=== PATIENT | female | born 1960 | race Caucasian/White ===

== ENCOUNTER 2023-10-25 17:48 | Emergency (ER) | payer OTHER ==
[2023-10-25] MEDS ORDERED: Dexamethasone 10 MG/ML VIAL ONE (18:19)
[2023-10-25] MEDS ORDERED: Ketorolac Tromethamine 30 MG (1 mL) VIAL ONE (18:20)
== END 2023-10-25 18:45 | disposition home or self-care (01) ==
LOC: CSHERS 17:48
DX: M06.9 Rheumatoid arthritis, unspecified (principal); E11.9 Type 2 diabetes mellitus without complications; E03.9 Hypothyroidism, unspecified; K21.9 Gastro-esophageal reflux disease without esophagitis; E78.00 Pure hypercholesterolemia, unspecified; Z79.899 Other long term (current) drug therapy; Z75.3 Unavailability and inaccessibility of health-care facilities
CPT/HCPCS: 99283; J1100; J1885

== ENCOUNTER 2024-05-19 13:01 | Inpatient (IN) | payer MEDICARE, OTHER ==
[2024-05-19] MEDS ORDERED: Ipratropium/Albuterol 3 ML NEB ONE (13:25)
[2024-05-19] MEDS ORDERED: cefTRIAXone (ROCEPHIN) 2 GM VIAL ONE (13:56)
[2024-05-19] MEDS ORDERED: Azithromycin 500 MG VIAL ONE (13:56)
[2024-05-19 13:57] LABS: #Eosinophils 0.08 10x3/uL (0.0-0.5); #Monocytes 0.95 10x3/uL (0.0-1.1); %Basophils 0.6 % (0.0-2.0); %Eosinophils 0.5 % (0.0-6.0); %Lymphocytes 12.9 % (18.0-47.0); %Monocytes 5.8 % (0.0-10.0); %Neutrophils 75.9 % (40.0-75.0); Hemoglobin 14.8 g/dL (12.0-15.5); Mean Corpuscular HGB CONC 32.9 g/dL (32.0-36.0); Mean Corpuscular Hemoglobin 26.1 pg (27.0-33.0); Mean Corpuscular Volume 79.5 fL (81.6-98.3); Mean Platelet Volume 10.2 fL (7.4-10.4); Platelet Count 480 10x3/uL (150-450); Red Blood Cell (RBC) Count 5.66 10x6/uL (3.90-5.03); White Blood Cell (WBC) Count 16.3 10x3/uL (3.5-10.5)
[2024-05-19 14:10] LABS: ALT (SGPT) 16 U/L (8-55); Alkaline Phosphatase 153 U/L (40-110); Anion Gap 17 mmol/L (10-20); BUN (Urea Nitrogen) 15 mg/dL (9.8-20.1); Bilirubin, Total Less than 0.2 mg/dL (0.2-1.2); Calc. Creatinine Clearance 0 mL/min (70-130); Calcium 8.5 mg/dL (7.8-10.44); Carbon Dioxide 19 mmol/L (23-31); Chloride 108 mmol/L (98-107); Estimated GFR 86; Globulin 4.7 g/dL (2.4-3.5); Glucose 153 mg/dL (80-115); Potassium 3.9 mmol/L (3.5-5.1); Protein, Total 6.7 g/dL (5.8-8.1); Sodium 140 mmol/L (136-145)
[2024-05-19 14:15] LABS: AST (SGOT) 19 U/L (5-34)
[2024-05-19] MEDS ORDERED: Acetaminophen 500 MG TAB ONE (14:16)
[2024-05-19] MEDS ORDERED: Ondansetron PF 4 MG/2 ML Vial IVP PRN (19:24)
[2024-05-19] MEDS ORDERED: Glucagon 1 MG/ML KIT IM PRN (19:24)
[2024-05-19] MEDS ORDERED: Dextrose 50% Abboject 50 ML SYRINGE SLOW IVP PRN (19:24)
[2024-05-19] MEDS ORDERED: Insulin Lispro 100 UNIT/ML 10 ML VIAL SC PRN (19:24)
[2024-05-19] MEDS ORDERED: Acetaminophen 650 MG Suppository PR PRN (19:24)
[2024-05-19] MEDS ORDERED: Dextrose 5% in Water 1,000 ML IV PRN (19:24)
[2024-05-19] MEDS ORDERED: Ondansetron ODT 4 MG TAB PO PRN (19:24)
[2024-05-19] MEDS ORDERED: Acetaminophen 325 MG TAB ONE (19:55)
[2024-05-19] MEDS ORDERED: Atorvastatin Calcium 40 MG TAB ONE (20:42)
[2024-05-19] MEDS: Atorvastatin Calcium 40 MG TAB PO SCH (20:55)
[2024-05-19] MEDS: Oseltamivir 75 MG CAP PO SCH (20:55)
[2024-05-19] MEDS: DULoxetine 30 MG CAP PO SCH (20:55)
[2024-05-19] MEDS: Ipratropium/Albuterol 3 ML NEB NEB PRN (23:48)
[2024-05-20 03:25] LABS: #Basophils 0.08 10x3/uL (0.0-0.2); #Monocytes 1.04 10x3/uL (0.0-1.1); #Neutrophils 10.61 10x3/uL (1.5-8.4); %Basophils 0.5 % (0.0-2.0); %Eosinophils 0.7 % (0.0-6.0); %Lymphocytes 15.7 % (18.0-47.0); %Monocytes 7.1 % (0.0-10.0); %Neutrophils 72.1 % (40.0-75.0); Hematocrit 36.9 % (34.9-44.5); Hemoglobin 12.1 g/dL (12.0-15.5); Mean Corpuscular HGB CONC 32.8 g/dL (32.0-36.0); Mean Corpuscular Hemoglobin 26.5 pg (27.0-33.0); Mean Corpuscular Volume 80.9 fL (81.6-98.3); Platelet Count 390 10x3/uL (150-450); RBC Distribution Width 19.9 % (11.5-14.5); Red Blood Cell (RBC) Count 4.56 10x6/uL (3.90-5.03); White Blood Cell (WBC) Count 14.7 10x3/uL (3.5-10.5)
[2024-05-20 04:36] LABS: Anion Gap 14 mmol/L (10-20); BUN (Urea Nitrogen) 21 mg/dL (9.8-20.1); Calc. Creatinine Clearance 75 mL/min (70-130); Carbon Dioxide 19 mmol/L (23-31); Chloride 108 mmol/L (98-107); Estimated GFR 97; Glucose 162 mg/dL (80-115); Potassium 2.8 mmol/L (3.5-5.1); Sodium 138 mmol/L (136-145)
[2024-05-20] MEDS: Levothyroxine Sodium 50 MCG TAB PO SCH (06:10)
[2024-05-20] MEDS ORDERED: Acetaminophen 325 MG TAB ONE ×2 (06:24→11:42)
[2024-05-20] MEDS: Acetaminophen 325 MG TAB PO PRN (06:32)
[2024-05-20] MEDS ORDERED: Potassium Chloride 20 MEQ TAB ONE (09:08)
[2024-05-20] MEDS ORDERED: Enoxaparin 40 MG (0.4 mL) SYRINGE ONE (09:08)
[2024-05-20] MEDS ORDERED: Pantoprazole 40 MG DR.TAB ONE (09:09)
[2024-05-20] MEDS ORDERED: Folic Acid 1 MG TAB ONE (09:09)
[2024-05-20 09:36] VITALS: BMI 27.4
[2024-05-20] MEDS: Potassium Chloride 20 MEQ TAB PO SCH (10:16)
[2024-05-20] MEDS: Folic Acid 1 MG TAB PO SCH (10:16)
[2024-05-20] MEDS: Enoxaparin 40 MG (0.4 mL) SYRINGE SC SCH (10:16)
[2024-05-20] MEDS: DULoxetine 30 MG CAP PO SCH (10:16)
[2024-05-20] MEDS: Pantoprazole 40 MG DR.TAB PO SCH (10:16)
[2024-05-20] MEDS: busPIRone HCl 5 MG TAB PO SCH (10:16)
[2024-05-20] MEDS: Oxybutynin ER 5 MG TAB PO SCH (10:16)
[2024-05-20] MEDS: Topiramate 100 MG TAB PO SCH (10:17)
[2024-05-20] MEDS ORDERED: tiZANidine HCl 4 MG TAB PO PRN (14:10)
[2024-05-20] MEDS ORDERED: Ondansetron ODT 4 MG TAB PO PRN (14:33)
[2024-05-20] MEDS ORDERED: cefTRIAXone (ROCEPHIN) 2 GM VIAL ONE (16:31)
[2024-05-20] MEDS: cefTRIAXone\\ROCEPHIN 2 GM in Sodium Chloride 0.9% 100 ML IVPB SCH (16:47)
[2024-05-20] MEDS: SUMAtriptan Succinate 50 MG TAB PO PRN (16:48)
[2024-05-20] MEDS: FLU (Fluarix Triv) TS24-25(6MOS UP)/PF 45 MCG/0.5 ML Syringe IM ONE (17:36)
[2024-05-20] MEDS ORDERED: Azithromycin 500 MG VIAL ONE (17:38)
[2024-05-20] MEDS: Azithromycin 500 MG in Sodium Chloride 0.9% 250 ML 250 ML IVPB SCH (17:44)
[2024-05-20] MEDS: CeleCOXIB 100 MG CAP PO SCH (21:26)
[2024-05-20] MEDS: Trospium 20 MG TAB PO SCH (21:28)
[2024-05-21 04:29] LABS: Anion Gap 11 mmol/L (10-20); BUN (Urea Nitrogen) 11 mg/dL (9.8-20.1); Calc. Creatinine Clearance 86 mL/min (70-130); Calcium 8.1 mg/dL (7.8-10.44); Carbon Dioxide 21 mmol/L (23-31); Chloride 111 mmol/L (98-107); Estimated GFR 100; Glucose 124 mg/dL (80-115); Potassium 4.1 mmol/L (3.5-5.1); Sodium 139 mmol/L (136-145)
[2024-05-21 04:41] LABS: #Basophils 0.08 10x3/uL (0.0-0.2); #Eosinophils 0.09 10x3/uL (0.0-0.5); #Monocytes 0.54 10x3/uL (0.0-1.1); #Neutrophils 4.88 10x3/uL (1.5-8.4); %Eosinophils 1.2 % (0.0-6.0); %Lymphocytes 23.6 % (18.0-47.0); %Neutrophils 63.3 % (40.0-75.0); Hematocrit 34.7 % (34.9-44.5); Hemoglobin 11.4 g/dL (12.0-15.5); Mean Corpuscular HGB CONC 32.9 g/dL (32.0-36.0); Mean Corpuscular Hemoglobin 27.5 pg (27.0-33.0); Mean Corpuscular Volume 83.8 fL (81.6-98.3); Mean Platelet Volume 10.1 fL (7.4-10.4); Platelet Count 357 10x3/uL (150-450); RBC Distribution Width 20.7 % (11.5-14.5); Red Blood Cell (RBC) Count 4.14 10x6/uL (3.90-5.03); White Blood Cell (WBC) Count 7.7 10x3/uL (3.5-10.5)
[2024-05-21] MEDS: Meloxicam 7.5 MG TAB PO SCH (08:52)
[2024-05-21] MEDS ORDERED: RIZATRIPTAN 10 MG PO PRN (10:09)
[2024-05-21] MEDS: Rizatriptan Benzoate [Rizatriptan] 10 MG Tab.Rapdis PO PRN (14:24)
[2024-05-21] MEDS: Lorazepam 0.5 MG TAB PO PRN (18:27)
[2024-05-22 04:35] LABS: #Basophils 0.08 10x3/uL (0.0-0.2); #Eosinophils 0.06 10x3/uL (0.0-0.5); #Monocytes 0.64 10x3/uL (0.0-1.1); #Neutrophils 4.46 10x3/uL (1.5-8.4); %Basophils 1.1 % (0.0-2.0); %Eosinophils 0.8 % (0.0-6.0); %Monocytes 8.5 % (0.0-10.0); %Neutrophils 59.3 % (40.0-75.0); Hematocrit 37.8 % (34.9-44.5); Hemoglobin 11.8 g/dL (12.0-15.5); Mean Corpuscular HGB CONC 31.2 g/dL (32.0-36.0); Mean Corpuscular Hemoglobin 26.6 pg (27.0-33.0); Mean Corpuscular Volume 85.1 fL (81.6-98.3); Mean Platelet Volume 9.7 fL (7.4-10.4); Platelet Count 429 10x3/uL (150-450); RBC Distribution Width 21.1 % (11.5-14.5); Red Blood Cell (RBC) Count 4.44 10x6/uL (3.90-5.03); White Blood Cell (WBC) Count 7.5 10x3/uL (3.5-10.5)
[2024-05-22 04:47] LABS: Anion Gap 12 mmol/L (10-20); BUN (Urea Nitrogen) 12 mg/dL (9.8-20.1); Calc. Creatinine Clearance 74 mL/min (70-130); Calcium 8.5 mg/dL (7.8-10.44); Carbon Dioxide 20 mmol/L (23-31); Chloride 113 mmol/L (98-107); Estimated GFR 97; Glucose 122 mg/dL (80-115); Potassium 4.6 mmol/L (3.5-5.1); Sodium 140 mmol/L (136-145)
[2024-05-23 04:19] LABS: #Basophils 0.09 10x3/uL (0.0-0.2); #Eosinophils 0.08 10x3/uL (0.0-0.5); #Monocytes 0.77 10x3/uL (0.0-1.1); %Basophils 1.2 % (0.0-2.0); %Lymphocytes 26.7 % (18.0-47.0); %Monocytes 9.9 % (0.0-10.0); %Neutrophils 56.3 % (40.0-75.0); Hematocrit 36.9 % (34.9-44.5); Hemoglobin 11.6 g/dL (12.0-15.5); Mean Corpuscular HGB CONC 31.4 g/dL (32.0-36.0); Mean Corpuscular Hemoglobin 26.7 pg (27.0-33.0); Mean Platelet Volume 9.6 fL (7.4-10.4); Platelet Count 437 10x3/uL (150-450); RBC Distribution Width 21.1 % (11.5-14.5); Red Blood Cell (RBC) Count 4.34 10x6/uL (3.90-5.03); White Blood Cell (WBC) Count 7.8 10x3/uL (3.5-10.5)
[2024-05-23 04:30] LABS: Anion Gap 12 mmol/L (10-20); BUN (Urea Nitrogen) 13 mg/dL (9.8-20.1); Calc. Creatinine Clearance 78 mL/min (70-130); Calcium 8.5 mg/dL (7.8-10.44); Carbon Dioxide 20 mmol/L (23-31); Chloride 111 mmol/L (98-107); Estimated GFR 98; Glucose 126 mg/dL (80-115); Potassium 4.6 mmol/L (3.5-5.1); Sodium 138 mmol/L (136-145)
[2024-05-24 09:14] VITALS: TEMP 97.9
[2024-05-24 11:16] VITALS: BP 132/80
== END 2024-05-24 15:47 | disposition home or self-care (01) | DRG 193 ==
LOC: CSHERS 13:01 → CSHERHOLD 16:09 → CSHTELE 05-20 18:42 → OBSVTOIN 05-21 10:13
PROVIDERS: ADMIT Family Medicine; ATTEND Internal Medicine
DX: J10.01 Influenza due to other identified influenza virus with the same other identified influenza virus pneumonia (principal); J96.01 Acute respiratory failure with hypoxia; E11.9 Type 2 diabetes mellitus without complications; M32.9 Systemic lupus erythematosus, unspecified; M06.9 Rheumatoid arthritis, unspecified; E03.9 Hypothyroidism, unspecified; K21.9 Gastro-esophageal reflux disease without esophagitis; E78.5 Hyperlipidemia, unspecified; G43.909 Migraine, unspecified, not intractable, without status migrainosus; F32.A Depression, unspecified; M54.30 Sciatica, unspecified side; M19.90 Unspecified osteoarthritis, unspecified site; Z90.710 Acquired absence of both cervix and uterus
CPT/HCPCS: 36415; 36416; 71045; 71046; 74018; 80048; 80053; 83605; 85025; 87040; 87428; 94640; 94760; 94762; 96372; 96374; 96375; 96376; G0378; J0456; J0696; J1650; J7050; J7620